=== PATIENT | female | born 1995 | race Hispanic/Latino ===

== ENCOUNTER 2022-01-12 00:43 | Emergency (ER) | payer BC ==
[~2022-01-12] VITALS: Ht 162.6 cm; Wt 72.6 kg
[2022-01-12] MEDS ORDERED: IBUP-2071 PO (02:45)
[2022-01-12] MEDS ORDERED: ALBUHFA IH (02:45)
[2022-01-12 03:00] VITALS: BP 125/81
== END 2022-01-12 03:21 | disposition home or self-care (01) ==
LOC: EDH 00:43
DX: R07.89 Other chest pain (principal); F41.9 Anxiety disorder, unspecified; J45.909 Unspecified asthma, uncomplicated
CPT/HCPCS: 71045; 81025; 82948; 93005